=== PATIENT | male | born 1975 | race Caucasian/White ===

== ENCOUNTER 2017-05-06 10:24 | Emergency (ER) | payer OTHER, BC, SELFPAY ==
[2017-05-06 10:25] VITALS: BP 135/71; PULSE 65; RESP 18; TEMP 36.4; O2SAT 99; BMI 23.7
--- NOTE | 2017-05-06 10:42 | ED.VISSUMM ---
- ER Visit Summary Date of Service: 05/06/17 Chief Complaint: Back injury History of Present Illness: The patient is a 41 M with left lower back pain. Symptoms started after lifting and moving plywood at work. Pain is in his left lower back and does not radiate. Worse with moving and bending. Patient injured his back before, but had pain on the right side. No surgeries. He denies any associated weakness or numbness. Denies any change in bowel or bladder. Denies any abdominal or GI symptoms. Physical Examination: Vital signs unremarkable. Afebrile. Patient is pacing in the exam room and appears uncomfortable. Abdomen soft and nontender. Back is tender to palpation in the left lumbar paraspinal region. No spinal tenderness. Strength and sensation are intact. Overlying skin appears normal. Test Results: Lumbar x-rays pending. Emergency Department Course and Treatment: Patient was treated with Toradol and Norflex while awaiting results. Will reassess. X-rays negative. Patient has myofascial back strain. Will prescribe naproxen and Flexeril. Follow-up with [facility]. Treatment Plan: As above. Disposition: Discharged Impression: 1. Left lumbar strain This note was generated with [employer] dictation software. It may contain incorrect words, spelling, and punctuation that were not noted in review of the chart prior to signing ED Disposition - Plan for ED Patient: Chief Complaint: Back Referrals: Kavon Ball MD [Primary Care Provider] -
[2017-05-06] MEDS: Ketorolac 60 MG/2 ML Vial IM (10:49)
[2017-05-06] MEDS: Orphenadrine 60 MG/2 ML Ampul IM (10:49)
--- NOTE | 2017-05-06 11:00 | RAD_ITS ---
STUDY: X-RAY - LUMBAR SPINE REASON FOR EXAM: Male, 41 years old. injury TECHNIQUE: 3 view(s) of the lumbar spine were obtained. COMPARISON: None FINDINGS: Normal lumbar lordosis. There is no substantial scoliosis. There is a normal alignment of the vertebrae. Normal vertebral bodies and endplates. Normal disc space heights. The soft tissue structures are unremarkable. RAD/Lumbar Spine 2 or 3 Views IMPRESSION: Normal x-ray examination of the lumbar spine. Electronically Signed: Latia Rondon MD at 11:22 EDT Tel , Service support ,
--- NOTE | 2017-05-06 11:38 | ED.DEP ---
ED Disposition - Plan for ED Patient: Chief Complaint: Back Instructions: ED Sprain Strain Lumbar Prescriptions: Naproxen [Naprosyn] 500 mg PO BID PRN #20 tab Cyclobenzaprine [Flexeril] 10 mg PO TID PRN #20 tab PRN Reason: Muscle Spasm Referrals: [facility] [GROUP OF PHYSICIANS] -
== END 2017-05-06 12:07 | disposition home or self-care (01) ==
LOC: ED 11:00
PROVIDERS: Emergency Provider Emergency Medicine; Family Provider Internal Medicine; PCP Internal Medicine
DX: S39.012A Strain of muscle, fascia and tendon of lower back, initial encounter (principal); X50.9XXA Other and unspecified overexertion or strenuous movements or postures, initial encounter; Y93.9 Activity, unspecified; Y92.89 Other specified places as the place of occurrence of the external cause; Y99.0 Civilian activity done for income or pay
CPT/HCPCS: 72100; 96372; 99282

== ENCOUNTER 2023-12-25 15:01 | Emergency (ER) | payer BC, SELFPAY ==
[2023-12-25 15:01] VITALS: BP 131/90; PULSE 64; RESP 16; TEMP 36.2; O2SAT 96; BMI 23.4
[2023-12-25] MEDS: Tetracaine 0.5% Ophthalmic Bottle 1 DRP LEFT EYE (15:17)
[2023-12-25] MEDS: Fluorescein 1 MG STRIP 1 STRIP LEFT EYE (15:17)
[2023-12-25] MEDS: Erythromycin Base 1 OPTH.TUBE 1 APPLIC LEFT EYE (15:36)
[2023-12-25] MEDS: Diphth,Pertuss(Acell),Tet Vac 0.5 ML Vial IM (15:41)
== END 2023-12-25 15:58 | disposition home or self-care (01) ==
PROVIDERS: Emergency Provider Emergency Medicine; PCP Internal Medicine; Visit Provider Emergency Medicine
DX: S05.02XA Injury of conjunctiva and corneal abrasion without foreign body, left eye, initial encounter (principal); W44.9XXA Unspecified foreign body entering into or through a natural orifice, initial encounter; Z23 Encounter for immunization; Z87.891 Personal history of nicotine dependence
CPT/HCPCS: 90471; 90715; 99283; A4216